=== PATIENT | female | born 1955 | race Asian ===

== ENCOUNTER 2019-09-16 08:17 | Day surgery (SDC) | payer OTHER ==
[~2019-09-16] VITALS: Ht 160 cm; Wt 54.5 kg
[~2019-09-16 08:17] MED LIST: Coenzyme Q10100 M1 PO; D3-20002000 UNIT PO; Fish Oil 10001000 MG PO
== END 2019-09-16 10:50 | disposition home or self-care (01) ==
LOC: ORSCSDS 08:17
PROVIDERS: Internal Medicine Gastroenterology
PROC: 0DBL8ZX Excision of Transverse Colon, Via Natural or Artificial Opening Endoscopic, Diagnostic (ICD-10-PCS; principal; 2019-09-16 10:00)
DX: Z12.11 Encounter for screening for malignant neoplasm of colon (principal); D12.3 Benign neoplasm of transverse colon; K64.1 Second degree hemorrhoids
CPT/HCPCS: 88305; J2704; J7120